=== PATIENT | male | born 1995 | race Caucasian/White ===

== ENCOUNTER 2016-08-13 23:47 | Emergency (ER) | payer MEDICAID ==
[~2016-08-13] VITALS: Ht 185.4 cm; Wt 90.9 kg
[~2016-08-13 23:47] MED LIST: AMOXICILLIN 50500 MG PO; FLAGYL 250250 MG/TAB PO; NORCO 325 MG-51 TAB PO; PEPTO BISM525 MG/15 PO; PREVPAC PO; PRILOSEC 20MG20 MG PO; TETRACYCLI500 MG/CAP PO; ULTRAM 50MG TAB50 MG PO; ZITHROMAX 250M250 MG PO; ZOFRAN ODT4 MG
[2016-08-13 23:53] VITALS: TEMP 98
[2016-08-14] MEDS ORDERED: FLEXERIL 1010 MG/TAB PO (01:57)
[2016-08-14] MEDS ORDERED: VOLTAREN 75 DR75 MG PO (01:57)
[2016-08-14 02:20] VITALS: BP 135/80; PULSE 80
== END 2016-08-14 02:20 | disposition home or self-care (01) ==
LOC: COL.ER 23:47
DX: S20.222A Contusion of left back wall of thorax, initial encounter (principal); S20.221A Contusion of right back wall of thorax, initial encounter; S20.412A Abrasion of left back wall of thorax, initial encounter; S20.411A Abrasion of right back wall of thorax, initial encounter; Y09 Assault by unspecified means; Y92.009 Unspecified place in unspecified non-institutional (private) residence as the place of occurrence of the external cause; G71.0 Muscular dystrophy; M79.672 Pain in left foot; S09.90XA Unspecified injury of head, initial encounter; R51 Headache
CPT/HCPCS: J1885

== ENCOUNTER → 2017-04-30 | Outpatient (CLI) | payer MEDICAID ==
[~2017-04-30] MED LIST changes: +FLEXERIL 1010 MG/TAB PO; +VOLTAREN 75 DR75 MG PO
== END ==
LOC: COL.RAD 14:20
DX: M51.36 Other intervertebral disc degeneration, lumbar region (principal); M51.26 Other intervertebral disc displacement, lumbar region; M48.061 Spinal stenosis, lumbar region without neurogenic claudication; M54.42 Lumbago with sciatica, left side; G89.29 Other chronic pain; Z98.890 Other specified postprocedural states

== ENCOUNTER → 2017-07-13 | Outpatient (CLI) | payer MEDICAID | LOC: COL.RAD 07:02 | DX: R11.2 Nausea with vomiting, unspecified (principal); K21.9 Gastro-esophageal reflux disease without esophagitis; K92.0 Hematemesis | CPT/HCPCS: A9541 ==

== ENCOUNTER 2018-03-20 01:40 | Emergency (ER) | payer MEDICAID ==
[~2018-03-20] VITALS: Ht 182.9 cm; Wt 143.2 kg
[2018-03-20 01:42] VITALS: TEMP 98
[2018-03-20] MEDS ORDERED: IBU800 M1 PO (01:50)
[2018-03-20 02:32] LABS: BASO # 0.1 (0.0-0.2); BASO % 0.6 % (0.0-2.0); EOS # 0.2 (0.0-0.7); EOS % 1.3 % (0-4.0); GRAN # 6.9 (1.4-6.5); GRAN % 55.5 % (42.2-75.2); HEMATOCRIT 46.2 % (42.0-52.0); HEMOGLOBIN 16.2 g/dl (13.5-18.0); LYMPH # 4.2 (1.2-3.4); LYMPH % 33.3 % (20.0-51.0); MEAN CELL VOLUME 87 fl (80.0-100.0); MEAN CORPUSCULAR HEMOGLOBIN 31 pg (27.0-31.0); MEAN CORPUSCULAR HGB CONC 35 g/dl (33.0-37.0); MEAN PLATELET VOLUME 8.4 fl (7.4-10.4); MONO # 1.1 (0.1-0.6); MONO % 8.7 % (1.7-9.3); PLATELET COUNT 454 K/mm3 (130-400); RED BLOOD COUNT 5.29 M/mm3 (4.20-5.60)
[2018-03-20 02:48] LABS: ALANINE AMINOTRANSFERASE 63 U/L (21-72); ALBUMIN 4.5 gm/dL (3.5-5.0); ALCOHOL(ethanol),MEDICAL 63 mg/dL; ALKALINE PHOSPHATASE 78 U/L (50-136); ANION GAP 11 mmol/L (7-16); AST,SGOT 27 U/L (15-37); BILIRUBIN,TOTAL 0.5 mg/dL (0.0-1.0); BLOOD UREA NITROGEN 9 mg/dL (9-20); CALCIUM 9.5 mg/dL (8.4-10.2); CARBON DIOXIDE 26 mmol/L (22-30); CHLORIDE 106 mmol/L (98-107); CREATININE, serum 0.68 mg/dL (0.66-1.25); GLUCOSE 116 mg/dL (74-106); LIPASE 22 U/L (23-300); POTASSIUM 3.8 mmol/L (3.4-5.0); SODIUM 143 mmol/L (137-145); TOTAL PROTEIN 8.2 gm/dL (6.4-8.2)
[2018-03-20 03:04] LABS: TROPONIN-I < 0.012 ng/mL (0.000-0.034)
[2018-03-20 04:49] VITALS: BP 123/72; PULSE 94
== END 2018-03-20 04:49 | disposition home or self-care (01) ==
LOC: COL.ER 01:40
PROVIDERS: Emergency Medicine
DX: G89.29 Other chronic pain (principal); R07.89 Other chest pain; M54.5 Low back pain; R11.10 Vomiting, unspecified; E66.9 Obesity, unspecified; M19.90 Unspecified osteoarthritis, unspecified site; Z72.89 Other problems related to lifestyle
CPT/HCPCS: J2405; J7030

== ENCOUNTER → 2020-10-24 | Outpatient (CLI) | payer MEDICAID ==
[~2020-10-24] MED LIST changes: +IBU800 M1 PO; +PRIL40 PO
== END ==
LOC: COL.PUL 06:42
DX: R06.02 Shortness of breath (principal)

== ENCOUNTER → 2020-12-16 | Outpatient (CLI) | payer MEDICAID | LOC: DIA.ED 11:47 | DX: E11.65 Type 2 diabetes mellitus with hyperglycemia (principal); Z79.84 Long term (current) use of oral hypoglycemic drugs; I10 Essential (primary) hypertension | CPT/HCPCS: G0108 ==

== ENCOUNTER 2021-01-30 16:55 | Emergency (ER) | payer MEDICAID ==
[~2021-01-30] VITALS: Ht 180.3 cm; Wt 143.2 kg
[2021-01-30 17:37] VITALS: TEMP 98.4
[2021-01-30 19:04] LABS: BASO % 0.3 % (0.0-2.0); EOS # 0.2 K/mm3 (0.0-0.7); EOS % 1.5 % (0-4.0); GRAN # 8.3 K/mm3 (1.4-6.5); GRAN % 59.6 % (42.2-75.2); HEMOGLOBIN 14.8 g/dl (13.5-18.0); LYMPH # 4.5 K/mm3 (1.2-3.4); LYMPH % 32.5 % (20.0-51.0); MEAN CELL VOLUME 87 fl (80.0-100.0); MEAN CORPUSCULAR HEMOGLOBIN 29 pg (27.0-31.0); MEAN CORPUSCULAR HGB CONC 34 g/dl (33.0-37.0); MEAN PLATELET VOLUME 8.3 fl (7.4-10.4); MONO # 0.8 K/mm3 (0.1-0.6); MONO % 5.7 % (1.7-9.3); PLATELET COUNT 453 K/mm3 (130-400); RED BLOOD COUNT 5.06 M/mm3 (4.20-5.60); REDCELL DISTRIBUTION WIDTH-CV 13.6 % (11.5-14.5)
[2021-01-30 19:23] LABS: ALBUMIN 3.5 gm/dL (3.5-5.0); BILIRUBIN,TOTAL 0.3 mg/dL (0.2-1.2); C-REACTIVE PROTEIN 0.9 mg/dL (0.00-0.50); CALCIUM 9.6 mg/dL (8.4-10.2); CREATININE, serum 0.74 mg/dL (0.72-1.25); POTASSIUM 3.7 mmol/L (3.5-4.5); TOTAL PROTEIN 7.6 gm/dL (6.2-8.1)
[2021-01-30 19:29] LABS: COLLECTION METHOD CLEAN CATCH
[2021-01-30 19:36] LABS: PH 7 (5-8); URINE APPEARANCE Clear; URINE BACTERIA Rare /hpf; URINE BILIRUBIN Negative (NEGATIVE); URINE BLOOD Negative (NEGATIVE); URINE COLOR Yellow; URINE GLUCOSE 1+ (NEGATIVE); URINE KETONE Negative (NEGATIVE); URINE LEUKOCYTE ESTERASE Negative (NEGATIVE); URINE NITRATE Negative (NEGATIVE); URINE PROTEIN(semi-quant) Negative (NEGATIVE); URINE RBC None Seen /hpf; URINE UROBILINOGEN Negative (NEGATIVE)
[2021-01-30 21:10] VITALS: BP 135/90; PULSE 115
== END 2021-01-30 21:10 | disposition home or self-care (01) ==
LOC: COL.ER 16:55
PROVIDERS: Emergency Medicine
DX: D72.829 Elevated white blood cell count, unspecified (principal); R79.82 Elevated C-reactive protein (CRP); R00.0 Tachycardia, unspecified; I10 Essential (primary) hypertension; E11.9 Type 2 diabetes mellitus without complications

== ENCOUNTER → 2023-12-17 | Day surgery (SDC) | payer MEDICAID ==
[~2023-12-17] VITALS: Ht 177.8 cm; Wt 116.8 kg
[~2023-12-17] MED LIST changes: +LR 1,000 ML IV SCH; +Ondansetron 4 MG/2 ML VIAL IV PRN; +PEPCID COMPLETE1 CTB PO; +PRINIVIL10 MG PO; +ROBAXIN 50500 MG/TAB PO; +ZETIA 10MG TAB10 MG PO; +ZOLOFT 50MG50 MG PO
[2023-12-17 10:39] VITALS: BP 135/73; PULSE 85; TEMP 97.2
--- NOTE | 2023-12-17 11:08 | NUR ---
The patient ambulated back to [facility] independently using a steady gait and appeared to tolerate the activity well. Vital signs obtained. Consent signed. 20G IV started in right hand with one stick, LR infusing without diffiuclty. Assessment completed. Home medications reconcilled. Warm blanket provided. Mother brought back to be at his bedside. Denies any further needs at this time.
[2023-12-17 12:04] VITALS: TEMP 97.5
[2023-12-17 12:10] VITALS: BP 120/63; PULSE 86
--- NOTE | 2023-12-17 12:10 | NUR ---
1210 PT ARRIVES TO [facility]. ASSISTED TO RECLINER WITH TWO ASSIST. SPOUSE PRESENT IN ROOM. 1220 IV SITE IS IN RIGHT HAND. SNACK GIVEN OF JUICE AND MUFFIN. 1225 DISCHARGE INSTRUCTIONS WENT OVER WITH PT AND FAMILY. DR STRONG SEE PATIENT. 1245 PT TAKEN TO POV IN WHEELCHAIR
[2023-12-17 12:25] VITALS: BP 123/80; PULSE 83
== END ==
LOC: SDCO 09:59
DX: K21.00 Gastro-esophageal reflux disease with esophagitis, without bleeding (principal); K92.0 Hematemesis; R10.9 Unspecified abdominal pain; R19.7 Diarrhea, unspecified; K62.5 Hemorrhage of anus and rectum; K64.1 Second degree hemorrhoids; E11.9 Type 2 diabetes mellitus without complications; Z79.85 Long-term (current) use of injectable non-insulin antidiabetic drugs
CPT/HCPCS: J7120